=== PATIENT | female | born 1985 | race African-American/Black ===

== ENCOUNTER 2023-12-31 11:52 | Outpatient (CLI) | payer MEDICAID, OTHER | END 2023-12-31 11:53 | disposition home or self-care (01) | LOC: BURRAD 11:52 | PROVIDERS: ATTEND Family Medicine | DX: M25.50 Pain in unspecified joint (principal); S43.002A Unspecified subluxation of left shoulder joint, initial encounter; M19.012 Primary osteoarthritis, left shoulder; M19.011 Primary osteoarthritis, right shoulder; M17.0 Bilateral primary osteoarthritis of knee; M25.462 Effusion, left knee; M25.461 Effusion, right knee ==